=== PATIENT | female | born 1965 | race Caucasian/White ===

== ENCOUNTER 2017-03-23 22:10 | Emergency (ER) | payer OTHER ==
[~2017-03-23] VITALS: Ht 180.3 cm; Wt 59.0 kg
[~2017-03-23 22:10] MED LIST: LEVAQUIN500 MG PO; MEDROL DOSEPAK1 PAC PO; NOVAPLUS V0.09 MG/Ac INH; PERCOCET 325 MG1 TA2 PO; PERCOCET 5-3251 EACH PO; ROBITUSSIN W/CO10 ML PO; ZITHROMAX Z-PA250 M1 PO; ZOFRAN ODT4 MG PO
--- NOTE | 2017-03-23 22:57 | RADIOLOGY REPORT ---
EXAMINATION: XR KNEE, RIGHT CLINICAL INFORMATION: Fall and 96. Increased pain with movement. COMPARISON: None TECHNIQUE: Four views of the right knee. FINDINGS: No fracture or subluxation. Compartmental joint spaces are maintained. The soft tissues are unremarkable. Small joint effusion noted. IMPRESSION: Small joint effusion. No acute fracture or malalignment.
--- NOTE | 2017-03-24 00:16 | ED UPPER/LOWER EXTREMITY COMPL ---
History of Present Illness General Chief Complaint: Lower Extremity Problems Stated Complaint: "I FELL AND I HIT MY KNEE" RIGHT Source: patient, old records Exam Limitations: no limitations Allergies Coded Allergies: No Known Allergies (03/23/17) Reconcile Medications Oxycodone HCl/Acetaminophen (Percocet 5-325 MG Tablet) 5 MG-325 MG TABLET 1 TAB PO BID BREAKTHROUGH PAIN Oxycodone HCl/Acetaminophen (Percocet 5-325 MG Tablet) 5 MG-325 MG TABLET 1-2 TAB PO BID pain Oxycodone HCl/Acetaminophen (Percocet 5-325 MG Tablet) 5 MG-325 MG TABLET 1 TAB PO BID PRN pain Triage Note: TRIAGE: PATIENT REPORTS S/P MECHANICAL FALL ONTO R KNEE, PAIN 11/23 APPROX 2 HOURS AGO, "SLIPPED ON ICE." PATIENT ALSO REPORTING "I NEED AN ANTIBIOTIC FOR MY COUGH, MY SINUSES AND CHEEKBONES HURT." +COUGHING IN TRIAGE. DENIES SOB. Triage Nurses Notes Reviewed? yes Onset: Abrupt Duration: hour(s): Timing: single episode today Severity: moderate Severity Numbers: 9 Pain/Injury Location: Right: Knee. Method of Injury: fall Modifying Factors: Worsens With: movement. HPI: 51yo female presents to ED complaining of right knee pain after falling earlier today. Patient states that she slipped on ice and fell forward landing on right knee. Patient states that she is unable to bear weight on this leg due to pain. Pain is worse when she tries to move the right leg. Patient has not taken anything For the pain. She denies numbness, tingling, bleeding, bruising, swelling. (Dee SIMPSON,Cait Mariee) Vital Signs & Intake/Output Vital Signs & Intake/Output Vital Signs Date Time Temp Pulse Resp B/P B/P Pulse O2 O2 Flow FiO2 Mean Ox Delivery Rate 03/24 0027 97.8 86 18 136/88 96 03/24 0003 96 Room Air 03/23 2215 95.8 105 18 140/92 100 Room Air ED Intake and Output 03/24 0000 03/23 1200 Intake Total Output Total Balance Patient 130 lb Weight Weight Reported by Patient Measurement Method (Bia CA,Marc Yañez) Past History Travel History Traveled to [place] past 21 day No Medical History Any Pertinent Medical History? see below for history Neurological: NONE EENT: NONE Cardiovascular: NONE Respiratory: COPD, emphysema Gastrointestinal: NONE Hepatic: NONE Renal: NONE Musculoskeletal: NONE Psychiatric: NONE Endocrine: NONE Blood Disorders: NONE Cancer(s): NONE PROCESS DESIGNER/Reproductive: NONE Surgical History Surgical History: N Psychosocial History What is your primary language [place] Tobacco Use: Refused to answer Family History Hx Contributory? No (Cait Martinez) Review of Systems Review of Systems Constitutional: Reports: no symptoms. EENTM: Reports: no symptoms. Respiratory: Reports: no symptoms. Cardiovascular: Reports: no symptoms. Gastrointestinal/Abdominal: Reports: no symptoms. Genitourinary: Reports: no symptoms. Musculoskeletal: Reports: see HPI. Skin: Reports: no symptoms. Neurological/Psychological: Reports: no symptoms. Hematologic/Endocrine: Reports: no symptoms. Immunological: Reports: no symptoms. All Other Systems: Reviewed and Negative (Cait Martinez) Physical Exam Physical Exam General Appearance: well developed/nourished, no apparent distress, alert, awake Head: atraumatic, normal appearance Eyes: Bilateral: normal appearance. Ears, Nose, Throat: hearing grossly normal Neck: normal inspection, supple, full range of motion Cardiovascular/Respiratory: no respiratory distress Back: normal inspection, normal range of motion Leg Left: normal range of motion, normal inspection Leg Right: normal inspection Hip Left: normal range of motion, normal inspection Hip Right: normal range of motion, normal inspection Knee Left: normal range of motion, normal inspection Knee Right: tenderness to anterior and medial knee without significant swelling, no abrasions or lacerations Knee Ligaments Right: no laxiety however pain with ROM, no crepitus Foot Left: normal inspection, normal range of motion Foot Right: normal inspection, normal range of motion Neurologic/Tendon: normal sensation, normal motor functions, normal tendon functions Skin: intact, normal color, warm/dry (Cait Martinez) Progress Differential Diagnosis: arterial insufficiency, compartment syndrome, contusion, fracture, sprain, tendon injury Diagnostic Imaging: Viewed by Me: Radiology Read. Discussed w/RAD: Radiology Read. Radiology Impression: PATIENT: JERRY SESAY PRESENT AGE: 51 PATIENT ACCOUNT NO: [id number] : 67 LOCATION: [facility] ORDERING PHYSICIAN: Manuel Hare DO (TBS) SERVICE DATE: 03/23/17 EXAM TYPE: RAD - XRY-KNEE COMPLETE RIGHT EXAMINATION: XR KNEE, RIGHT CLINICAL INFORMATION: Fall and 96. Increased pain with movement. COMPARISON: None TECHNIQUE: Four views of the right knee. FINDINGS: No fracture or subluxation. Compartmental joint spaces are maintained. The soft tissues are unremarkable. Small joint effusion noted. IMPRESSION: Small joint effusion. No acute fracture or malalignment. DICTATED BY : Emeka Rockwell MD DATE/TIME DICTATED:03/23/172251 [employer] BIOMANUFACTURING TECHNICIAN: PAUL DATE/TIME TRANSCRIBED:03/23/172251 CONFIDENTIAL, DO NOT COPY WITHOUT APPROPRIATE AUTHORIZATION. <Electronically signed in Other Vendor System> SIGNED BY: Luli CA,Emeka 03/23/172256 (Dee SIMPSON,Cait Mariee) Plan of Care: Orders Procedure Date/time Status Durable Medical Equipment 03/24 16 Active X-ray reveals mild knee effusion, no acute fracture detected. These findings were discussed with the patient. Patient placed in knee immobilizer to her difficulty with ambulation. Patient to ambulate while wearing the immobilizer. Patient will follow-up with orthopedics for further evaluation and possible further imaging. Patient prescribed Percocet to take for pain. She was also educated on RICE therapy. Patient in no acute distress, nontoxic appearing. The Patient agrees with the plan of care. (Cait Martinez) (Bia CA,Marc Yañez) Departure Departure Disposition: HOME OR SELF CARE Condition: Stable Clinical Impression Primary Impression: Knee pain Qualifiers: Chronicity: acute Laterality: right Qualified Code: M25.561 - Pain in right knee Secondary Impressions: Fall Qualifiers: Encounter type: initial encounter Qualified Code: W19.XXXA - Unspecified fall, initial encounter Knee effusion Qualifiers: Laterality: right Qualified Code: M25.461 - Effusion, right knee Referrals: Lorelei Fall APRN (PCP/Family) Additional Instructions: Wear knee immobilizer while walking for stability. You may also purchase soft knee brace to instability once your pain has improved. Follow-up with orthopedic doctor if your pain is persistent. Take percocet as prescribed as needed for pain, this is a narcotic, do not drive or drink alcohol while taking this medication. Please note that there might be incidental findings in your evaluation that are unrelated to the current emergency department visit. Please notify your primary care doctor about this emergency department visit in order to obtain and review all of the testing performed so that these incidental findings can be monitored as needed. If you had an x-ray performed, please understand that some fractures may not be seen on the initial set of x-rays. If your symptoms persist you might need a repeat set of x-rays to check for such a fracture. If you had a laceration evaluated, please understand that foreign bodies such as glass or wood may not be visible to the naked eye or on plain x-rays. If the wound becomes red, swollen, increasingly more painful or if there is any drainage from the wound, please have it reevaluated by a physician for the possibility of a retained foreign body. If you're unable to follow up as outlined in the discharge instructions please return to the emergency department. Thank you for choosing the [facility] Emergency Department for your care. It was a pleasure to serve you today. Departure Forms: Customer Survey General Discharge Information Prescriptions: Current Visit Scripts Oxycodone HCl/Acetaminophen (Percocet 5-325 MG Tablet) 1 TAB PO BID #10 TAB Oxycodone HCl/Acetaminophen (Percocet 5-325 MG Tablet) 1 TAB PO BID PRN pain #10 TAB (Dee SIMPSON,Cait Mariee) PA/DIRECTOR EMERGENCY Co-Sign Statement Statement: ED Attending supervision documentation- [] I saw and evaluated the patient. I have also reviewed all the pertinent lab results and diagnostic results. I agree with the findings and the plan of care as documented in the PA's/DIRECTOR EMERGENCY's documentation. [X] I have reviewed the ED Record and agree with the PA's/DIRECTOR EMERGENCY's documentation. [] Additions or exceptions (if any) to the PAs/DIRECTOR EMERGENCY's note and plan are summarized below: [] (Bia CA,Marc Yañez)
[2017-03-24] MEDS ORDERED: PERCOCET 5-3251 EACH PO ×4 (00:20→11:44)
[2017-03-24 00:27] VITALS: BP 136/88
== END 2017-03-24 00:46 ==
LOC: ERH 22:10
DX: M25.561 Pain in right knee (principal); M25.461 Effusion, right knee; Z04.3 Encounter for examination and observation following other accident
CPT/HCPCS: 73562-RT